=== PATIENT | male | born 1955 | race Caucasian/White ===

== ENCOUNTER 2018-08-03 12:27 | Emergency (ER) | payer BC ==
[2018-08-03 12:55] VITALS: BP 142/109
--- NOTE | 2018-08-03 13:53 | UC ---
Throat Pain/Nasal Ian HPI - HPI Summary HPI Summary: Patient is an otherwise healthy 63-year-old male presenting to the with chief complaint of sudden onset severe 10 out of 10 throat pain. He states his son was diagnosed with strep throat in 2 days later he began to have symptoms. He states he took his sons at home amoxicillin medication the last 2 days and started to begin to feel better. He arrives today continuing to complain of sore throat, however much improved after taking the amoxicillin. He is requesting an antibiotic at this time due to his symptoms. Denies any fevers, sweats, chills. He takes no medications otherwise. - History of Current Complaint Chief Complaint: UCGeneralIllness Stated Complaint: SORE THROAT Time Seen by Provider: 08/03/18 13:41 Hx Obtained From: Patient Onset/Duration: Sudden Onset Severity: Moderate Pain Intensity: 8 Pain Scale Used: 0-10 Numeric Associated Signs & Symptoms: Positive: Dysphagia. Negative: Drooling, Wheezing , Hoarseness - Epiglottits Risk Factors Epiglottis Risk Factors: Negative - Allergies/Home Medications Allergies/Adverse Reactions: Allergies Allergy/AdvReac Type Severity Reaction Status Date / Time No Known Allergies Allergy Verified 08/03/18 12:56 PMH/Surg Hx/FS Hx/Imm Hx Previously Healthy: Yes Other History Of: Negative For: HIV, Hepatitis B, Hepatitis C - Surgical History Surgical History: Yes Surgery Procedure, Year, and Place: discectomy anterior NECK; left shoulder reconstruction rotator cuff; wisdom teeth. LIPOMAECTOMY RIGHT SIDE UNDER ARM - Family History Known Family History: Positive: None - reviewed & noncontributory - Social History Occupation: Employed Full-time Lives: With Family Alcohol Use: Daily Alcohol Amount: 3-4 glasses of rum or cocktails daily Substance Use Type: None Smoking Status (MU): Never Smoked Tobacco Review of Systems All Other Systems Reviewed And Are Negative: Yes Constitutional: Positive: Negative Eyes: Negative: Drainage, Eye Redness ENT: Positive: Sore Throat. Negative: Dental Pain, Ear Ache, Nasal Discharge, Sinus Congestion, Sinus Pain/Tenderness Respiratory: Positive: Negative Cardiovascular: Positive: Negative Neurovascular: Positive: Negative Musculoskeletal: Positive: Negative Neurological: Positive: Negative Is Patient Immunocompromised?: Yes Physical Exam Triage Information Reviewed: Yes Appearance: Well-Appearing, Well-Nourished Vital Signs: Initial Vital Signs Temp 98 F 08/03/18 12:53 Pulse 74 08/03/18 12:53 Resp 16 08/03/18 12:53 BP 142/109 08/03/18 12:53 Pulse Ox 99 08/03/18 12:53 Vital Signs Reviewed: Yes Eye Exam: Normal Eyes: Positive: Conjunctiva Clear ENT: Positive: Pharyngeal erythema, Tonsillar swelling, Uvula midline. Negative : Tonsillar exudate, Trismus, Muffled voice, Hoarse voice, Dental tenderness, Sinus tenderness Neck exam: Normal Neck: Positive: Supple Respiratory Exam: Normal Respiratory: Positive: Chest non-tender, Lungs clear Musculoskeletal Exam: Normal Neurological Exam: Normal Neurological: Positive: Alert Psychological Exam: Normal Psychological: Positive: Normal Response To Family Skin Exam: Normal Throat Pain/Nasal Course/Dx - Course Course Of Treatment: On physical examination, patient has pharyngeal erythema without bilateral tonsillar exudates. Bilateral cervical lymphadenopathy is noted. Denies any fevers, sweats, chills. Vital signs stable. A strep test is negative, however patient has been on 2 days of amoxicillin with a positive strep contact. For this reason he is given a seven-day course of amoxicillin at this time. - Differential Dx/Diagnosis Differential Diagnosis/HQI/PQRI: Peritonsillar Abscess, Sinusitis, Other - Tonsillitis, strep throat Provider Diagnosis: Pharyngitis Discharge - Sign-Out/Discharge Documenting (check all that apply): Patient Departure All imaging exams completed and their final reports reviewed: No Studies - Discharge Plan Condition: Stable Disposition: HOME Prescriptions: Amoxicillin PO (*) [Amoxicillin 875 MG (*)] 875 mg PO BID #14 tab Patient Education Materials: Strep Throat (ED) Referrals: Virgilio Brady MD [Primary Care Provider] - Additional Instructions: I have given you information on strep throat Amoxicillin 875mg twice daily x 7 days - Billing Disposition and Condition Condition: STABLE Disposition: Home
== END 2018-08-03 13:55 | disposition home or self-care (01) ==
LOC: UCEAST 12:27
DX: J02.9 Acute pharyngitis, unspecified (principal)
CPT/HCPCS: 87651; 99212; G0463

== ENCOUNTER 2018-08-10 08:18 | Emergency (ER) | payer BC ==
[2018-08-10 08:31] VITALS: BP 145/79
[2018-08-10] MEDS ORDERED: Penicillin G Benzathine 2.4MU* 2,400,000 UNITS/4 ML SYR IM ONE (08:40)
[2018-08-10] MEDS ORDERED: Penicillin G Benzathine 1.2MU* 1,200,000 UNITS/2 ML SYR IM ONE (08:44)
--- NOTE | 2018-08-10 08:46 | UC ---
Throat Pain/Nasal Ian HPI - HPI Summary HPI Summary: Was seen here a week ago for severe sore throat, was exposed to son with strep. Had taken 2 days of son's amoxicillin and was already feeling much better. RST was negative at that time, but pt was already taking abx. Was prescribed 7 days of amoxicillin, which pt split with his son. He stopped amox 4 days ago and developed cold symptoms that he is not concerned about. Was feeling like normal cold until he was woken in the middle of the night with a severe ST again, feeling just like last time. - History of Current Complaint Chief Complaint: UCGeneralIllness Stated Complaint: SORE THROAT Time Seen by Provider: 08/10/18 08:24 Hx Obtained From: Patient Onset/Duration: Sudden Onset, Still Present Severity: Severe Pain Intensity: 8 Cough: None Associated Signs & Symptoms: Positive: Nasal Discharge. Negative: Fever, Vomiting - Allergies/Home Medications Allergies/Adverse Reactions: Allergies Allergy/AdvReac Type Severity Reaction Status Date / Time No Known Allergies Allergy Verified 08/10/18 08:31 Home Medications: Home Medications NK [No Home Medications Reported] 08/10/18 [History Confirmed 08/10/18] PMH/Surg Hx/FS Hx/Imm Hx Other History Of: Negative For: HIV, Hepatitis B, Hepatitis C - Surgical History Surgical History: Yes Surgery Procedure, Year, and Place: discectomy anterior NECK; left shoulder reconstruction rotator cuff; wisdom teeth. LIPOMAECTOMY RIGHT SIDE UNDER ARM - Family History Known Family History: Positive: None Negative: Seizure Disorder - Social History Occupation: Employed Full-time Alcohol Use: Daily Alcohol Amount: 1 daily Substance Use Type: None Smoking Status (MU): Never Smoked Tobacco Review of Systems All Other Systems Reviewed And Are Negative: Yes Constitutional: Positive: Negative Skin: Positive: Negative Eyes: Positive: Negative ENT: Positive: Sore Throat, Nasal Discharge Respiratory: Positive: Cough Cardiovascular: Positive: Negative Gastrointestinal: Positive: Negative Genitourinary: Positive: Negative Motor: Positive: Negative Neurovascular: Positive: Negative Musculoskeletal: Positive: Negative Neurological: Positive: Negative Psychological: Positive: Negative Is Patient Immunocompromised?: No Physical Exam Triage Information Reviewed: Yes Appearance: Well-Nourished, Pain Distress - mild Vital Signs: Initial Vital Signs Temp 97.9 F 08/10/18 08:25 Pulse 105 08/10/18 08:25 Resp 18 08/10/18 08:25 BP 145/79 08/10/18 08:25 Pulse Ox 97 08/10/18 08:25 Vital Signs Reviewed: Yes Eye Exam: Normal Eyes: Positive: Conjunctiva Clear ENT: Positive: Pharyngeal erythema, Tonsillar exudate - R>L Neck: Positive: Nontender, No Lymphadenopathy Respiratory Exam: Normal Respiratory: Positive: Chest non-tender, Lungs clear, Normal breath sounds, No respiratory distress Cardiovascular: Positive: No Murmur, Tachycardia Musculoskeletal Exam: Normal Neurological Exam: Normal Neurological: Positive: Alert Psychological Exam: Normal Skin Exam: Normal Throat Pain/Nasal Course/Dx - Course Assessment/Plan: Because of recent strep exposure with good response to an inappropriately foreshortened course of antintibiotics, I feel it is appropriate to treat for acute Group A strep despite negative rapid swab. Pen G prescribed to ensure he gets the full course. - Differential Dx/Diagnosis Provider Diagnosis: Acute pharyngitis, Elevated blood pressure reading in office without diagnosis of hypertension, Upper respiratory infection, viral Discharge - Sign-Out/Discharge Documenting (check all that apply): Patient Departure All imaging exams completed and their final reports reviewed: No Studies - Discharge Plan Condition: Stable Disposition: HOME Patient Education Materials: Strep Throat (ED), Upper Respiratory Infection (ED ) Referrals: Virgilio Brady MD [Primary Care Provider] - 2 Weeks - Billing Disposition and Condition Condition: STABLE Disposition: Home
== END 2018-08-10 09:05 | disposition home or self-care (01) ==
LOC: UCEAST 08:18
DX: J02.9 Acute pharyngitis, unspecified (principal); R03.0 Elevated blood-pressure reading, without diagnosis of hypertension; J06.9 Acute upper respiratory infection, unspecified
CPT/HCPCS: 87651; 96372; 99211; G0463; J0558